=== PATIENT | female | born 1990 | race Caucasian/White ===

== ENCOUNTER 2017-03-05 14:07 | Emergency (ER) | payer OTHER ==
[2017-03-05 14:28] VITALS: BP 128/71
--- NOTE | 2017-03-05 14:37 | UC ---
Head Injury HPI - HPI Summary HPI Summary: a barn gate hit her in the face and chest knocking her to the ground--witness 10 -15 sec loc. now has right rib pain, right cheek pain and laceration to back of head - History Of Current Complaint Chief Complaint: UCHeadInjury Stated Complaint: HEAD INJURY Time Seen by Provider: 03/05/17 14:13 Hx Obtained From: Patient Hx Last Menstrual Period: February 02 ?: No Mechanism Of Injury: hit buy a barn gate with a cow comming out of it Onset/Duration: Sudden Onset Severity Currently: Mild Severity Initially: Moderate Pain Intensity: 4 Pain Scale Used: 0-10 Numeric Character: Throbbing Aggravating Factor(s): Nothing Alleviating Factor(s): Nothing Associated Signs And Symptoms: Positive: LOC (Time In Secs./Mins/Hrs) - 10-15 seconds per witness - Allergies/Home Medications Allergies/Adverse Reactions: Allergies Allergy/AdvReac Type Severity Reaction Status Date / Time Prednisone Allergy Hives Verified 03/05/17 14:28 Home Medications: Home Medications Ibuprofen [Advil] 200 mg PO 03/05/17 [History] PMH/Surg Hx/FS Hx/Imm Hx Previously Healthy: Yes - Surgical History Surgical History: None - Family History Known Family History: Positive: None Family History: no medical issues in family lineage - Social History Occupation: Student Lives: Alone Alcohol Use: Rare Substance Use Type: None Smoking Status (MU): Never Smoked Tobacco Review of Systems Constitutional: Negative - cheek Skin: Bruising, Other - laceration back of head Eyes: Negative ENT: Negative Respiratory: Negative Cardiovascular: Chest Pain - right ribs Gastrointestinal: Negative Genitourinary: Negative Motor: Negative Neurovascular: Negative Musculoskeletal: Negative Neurological: Negative Psychological: Negative All Other Systems Reviewed And Are Negative: Yes Physical Exam Triage Information Reviewed: Yes Appearance: Well-Appearing, Well-Nourished, Pain Distress - mild right ribs and cheek Vital Signs: Initial Vital Signs Temp 98.9 F 03/05/17 14:20 Pulse 117 03/05/17 14:20 Resp 16 03/05/17 14:20 BP 128/71 03/05/17 14:20 Pulse Ox 100 03/05/17 14:20 Vital Signs Reviewed: Yes Eye Exam: Normal Eyes: Positive: Conjunctiva Clear, Other: - perrla, eomi ENT Exam: Normal ENT: Positive: Normal ENT inspection, Hearing grossly normal, Pharynx normal, TMs normal. Negative: Nasal congestion, Nasal drainage, Tonsillar swelling, Tonsillar exudate, Trismus, Muffled/hoarse voice Dental Exam: Normal Neck exam: Normal Neck: Positive: Supple, Nontender, No Lymphadenopathy Respiratory Exam: Other Respiratory: Positive: Lungs clear, Normal breath sounds, No respiratory distress, No accessory muscle use, Other: - right 6-7 rib area tender Cardiovascular Exam: Normal Cardiovascular: Positive: RRR, No Murmur, Pulses Normal, Brisk Capillary Refill Abdominal Exam: Normal Abdomen Description: Positive: Nontender, No Organomegaly, Soft Bowel Sounds: Positive: Present Musculoskeletal Exam: Normal Musculoskeletal: Positive: Strength Intact, ROM Intact, No Edema Neurological Exam: Normal Neurological: Positive: Alert, Muscle Tone Normal Psychological Exam: Normal Skin Exam: Other Skin: Positive: Other - 2.5 x 1 cm stellite laceration to back of head Diagnostics - Laboratory Diagnostic Studies Completed/Ordered: ct head and face wnl x-ray of ribs right 6th rib fracture non-displaced Re-Evaluation - Re-Evaluation First Eval Change: Improved - wound cleaned and irragated with 250 cc ns, let applied for 30 mins then injection with 2 ccof lidocaine---4 siddharth placed---wound well approximated patient tolerated well Head Injury Course/Dx - Course Course Of Treatment: rest, concussion and head injury instructions, pain control for ribs, tetnus upto date augmentin for head wound follow with pcp return in 10 days for staple removal - Differential Dx/Diagnosis Differential Diagnosis/HQI/PQRI: Concussion With LOC, Contusion, Hematoma, Mandible Fracture, Nasal Fracture, Skull Fracture Provider Diagnoses: Concussion with LOC, Laceration with staple repair, rib 6th rib fx contusion to face Discharge - Discharge Plan Condition: Stable Disposition: HOME Prescriptions: Amoxicillin/Clavulanate TAB* [Augmentin TAB 875*] 875 mg PO BID #19 tab Patient Education Materials: Ibuprofen (By mouth), Rib Fracture (ED), Concussion (ED), Abrasion (ED), Post Concussion Syndrome (ED), Staple Care (ED) Referrals: [facility] [place] [facility]IAN REFERRAL [Outside] - If Needed Additional Instructions: Siddharth can come out in 10 days, observe daily for infection,
--- NOTE | 2017-03-05 15:29 | RAD ---
HISTORY: Head injury COMPARISONS: None TECHNIQUE: Multiple contiguous axial CT scans were obtained of the head without intravenous contrast. FINDINGS: HEMORRHAGE/INFARCT: There is no hemorrhage or acute infarct. MASSES/SHIFT: There is no mass or shift. EXTRA-AXIAL SPACES: There are no extra-axial fluid collections. SULCI AND VENTRICLES: The sulci and ventricles are normal in size and position for the patient's stated age. CEREBRUM: There are no focal parenchymal abnormalities. BRAINSTEM: There are no focal parenchymal abnormalities. CEREBELLUM: There are no focal parenchymal abnormalities. VESSELS: The vessels are grossly normal. PARANASAL SINUSES: The paranasal sinuses are clear. ORBITS: The orbits are unremarkable. BONES AND SOFT TISSUE: There is minimal soft tissue swelling along the left parietal scalp OTHER: None IMPRESSION: NO ACUTE INTRACRANIAL PATHOLOGY.
--- NOTE | 2017-03-05 15:43 | RAD ---
Indication: RIGHT axilla lateral rib pain following injury. Pain with inspiration. Comparison: No relevant prior exams available on the [facility] for comparison. Technique: 4 view RIGHT unilateral rib series. Report: Skin marker noted adjacent to the anterolateral segment of the RIGHT seventh rib. Adjacent to this there is subtle cortical contour irregularity at the lateral segment of the RIGHT sixth rib with overlying soft tissue swelling consistent with a nondisplaced rib fracture. No alveolar consolidation, pleural effusion, or pneumothorax. IMPRESSION: Nondisplaced RIGHT sixth rib fracture with overlying soft tissue swelling. Negative for pneumothorax.
--- NOTE | 2017-03-05 15:47 | RAD ---
INDICATION: Trauma to LEFT side of the cranium posteriorly. Facial pain. Loss of consciousness. COMPARISON: CT brain of the same date. TECHNIQUE: Multidetector CT base of the skull through mandible without contrast. Multiplanar reformation. REPORT: Negative for soft tissue hematoma. Unremarkable orbital contents. The orbital and maxillary sinus margins, zygomatic arches, lamina papyracea, base of the maxilla, pterygoid plates, and nasal bones are intact. The mandible is intact. Normal temporal mandibular joint alignment. Clear paranasal sinuses and mastoid air spaces. IMPRESSION: Negative for maxillofacial fracture.
[2017-03-05] MEDS ORDERED: Lidocaine/Epineph/Tetraca SOL* (LET solution) 4 ML BTL TOPICAL ONE (16:00)
[2017-03-05] MEDS ORDERED: Lidocaine 1% MPF* 2 ML VIAL INJ ONE (16:50)
[2017-03-05] MEDS ORDERED: Amoxicillin/Clavulanate TAB* 875 MG PO ONE (17:11)
[2017-03-05] MEDS ORDERED: Ibuprofen TAB* 600 MG PO ONE (17:13)
== END 2017-03-05 18:10 | disposition home or self-care (01) ==
LOC: UCEAST 14:07
DX: S06.0X1A Concussion with loss of consciousness of 30 minutes or less, initial encounter (principal); S01.01XA Laceration without foreign body of scalp, initial encounter; S22.31XA Fracture of one rib, right side, initial encounter for closed fracture; W22.8XXA Striking against or struck by other objects, initial encounter; Y93.89 Activity, other specified; Y92.71 Barn as the place of occurrence of the external cause; Z32.02 Encounter for pregnancy test, result negative; Z88.8 Allergy status to other drugs, medicaments and biological substances
CPT/HCPCS: 12001; 12002; 12031; 70450; 70486; 81003; 84702; 87086; 99202; A9270-GY; G0463